=== PATIENT | female | born 2005 | race Caucasian/White ===

== ENCOUNTER 2024-11-09 15:18 | Outpatient (CLI) | payer OTHER, SELFPAY ==
--- NOTE | 2024-11-09 16:05 | US_ITS ---
PROCEDURE INFORMATION: Exam: US Biophysical Profile Without Non-Stress Test Exam date and time: 11/09/2024 4:23 PM Age: 19 years old Clinical indication: Other: Vaginal bleeding; TECHNIQUE: Imaging protocol: US biophysical profile without non-stress testing. COMPARISON: No relevant prior studies available. FINDINGS: heart rate: 146 bpm Amniotic fluid index: VENESSA is 9.01 cm. BIOPHYSICAL PROFILE: breathing (BPP): 2 /2 gross body movement (BPP): 2 /2 tone (BPP): 2 /2 Amniotic fluid (BPP): 2 /2 Biophysical profile score (BPP): 8 /8 MATERNAL ANATOMY: Cervix: Cervical length measures 3.1 cm. IMPRESSION: Biophysical profile score is 8 out of 8. No acute abnormality.
[2024-11-09 16:10] VITALS: BP 115/72; PULSE 87; RESP 16; TEMP 36.9; O2SAT 97; BMI 21.2
[2024-11-09 16:14] VITALS: BMI 21.2
[2024-11-09 17:58] LABS: Microscopic, Urine URINE MICROSCOPIC (MICROSCOPIC)
[2024-11-09 18:05] LABS: Bilirubin,Urine Negative (Negative); Color,Urine YELLOW (Yellow); Glucose,Urine (UA) TRACE (Negative); Ketones,Urine Negative (Negative); Leukocyte Esterase,Urine Negative (Negative); PH,Urine 6.0 (5.0-8.5); Protein,Urine Negative (Negative); Specific Gravity, Urine >= 1.030 (1.005-1.030); Urobilinogen,Urine 1.0 EU/dl (0.2)
== END 2024-11-09 18:20 | disposition home or self-care (01) ==
LOC: OBOUT 15:22 → OB 15:23
PROVIDERS: Visit Provider Obstetrics & Gynecology
DX: O46.90 Antepartum hemorrhage, unspecified, unspecified trimester (principal); Z3A.00 Weeks of gestation of pregnancy not specified
CPT/HCPCS: 59025; 76819; 81001; 99212; G0463

== ENCOUNTER 2024-12-28 16:43 | Emergency (ER) | payer OTHER, SELFPAY ==
[2024-12-28] VITALS (11 sets, daily range): BP systolic 106–119; BP diastolic 62–74; PULSE 104–157; RESP 12–21; TEMP 36.6–38; O2SAT 98–100; BMI 20.3
--- NOTE | 2024-12-28 16:52 | ECG_ITS ---
APPROVED REPORT Exam: Resting ECG HR:147 bpm ECG Measurements Heart Rate 147 AXES PA 151 P 74 QRSd 70 QRS 78 QT 314 T 0 QTc 398 Conclusion SINUS TACHYCARDIA, POSSIBLE ATRIAL FLUTTER INDETERMINATE AXIS POSSIBLE RIGHT VENTRICULAR CONDUCTION DELAY [RSR (QR) IN V1/V2] ST DEVIATION AND MODERATE T-WAVE ABNORMALITY, CONSIDER ANTEROLATERAL ISCHEMIA [-0.1+ mV T-WAVE IN V3-V6] ST DEVIATION AND MODERATE T-WAVE ABNORMALITY, CONSIDER INFERIOR ISCHEMIA [-0.1+ mV T-WAVE IN II/aVF] ABNORMAL ECG UNCONFIRMED REPORT Electronically signed by : CHARLENE QUINTEROS, 12/29/2024 23:03:23
--- NOTE | 2024-12-28 16:59 | XR_ITS ---
PROCEDURE INFORMATION: Exam: XR Chest Exam date and time: 12/28/2024 5:16 PM Age: 19 years old Clinical indication: Fever TECHNIQUE: Imaging protocol: Radiologic exam of the chest. Views: 1 view. Total images: 1 COMPARISON: No relevant prior studies available. FINDINGS: Tubes, catheters and devices: EKG leads are present. Lungs: Nonspecific hyperinflation. No consolidation. No pulmonary vascular congestion or edema. Pleural spaces: Unremarkable. No pleural effusion. No pneumothorax. Heart/Mediastinum: Unremarkable. No cardiomegaly. No mediastinal widening or hilar enlargement. Bones/joints: Status post median sternotomy. Soft tissues: Breast attenuation artifact. IMPRESSION: 1. No radiographically acute cardiopulmonary process. 2. Nonspecific hyperinflation.
[2024-12-28 17:22] LABS: Coronavirus 19, PCR Not Detected (NotDetected); Hematocrit 37.5 % (37.0-47.0); Hemoglobin 13.0 g/dL (12.2-16.2); Immature Granulocytes % 0.3 %; Influenza A, PCR Not Detected (NotDetected); Influenza B, PCR Not Detected (NotDetected); Mean Corpuscular HGB Conc 34.7 g/dL (31.8-35.4); Mean Corpuscular Hemoglobin 31.0 pg (27.0-31.2); Mean Corpuscular Volume 89.3 fl (81-99); Nucleated Red Blood Cells % 0 %; Platelet Count 311 K/mm3 (142-424); Red Blood Count 4.20 M/mm3 (4.20-5.40); Red Cell Distribution Width-SD 36.3 fL; White Blood Count 14.1 K/mm3 (4.5-13.0)
[2024-12-28 17:31] LABS: Alanine Aminotransferase 23 U/L (12-78); Albumin Level 4.3 g/dl (3.5-5.0); Albumin/Globulin Ratio 1.4 (1.1-1.8); Alkaline Phosphatase 148 U/L (38-126); Anion Gap 16.3 mEq/L (5-15); Aspartate Amino Transferase 27 U/L (14-36); Bilirubin,Total 0.5 mg/dl (0.2-1.3); Blood Urea Nitrogen 9 mg/dl (7-17); Calcium 9.2 mg/dl (8.4-10.2); Carbon Dioxide 23 mmol/L (22.0-30.0); Chloride 100 mmol/L (98-107); Creatinine Clearance Estimated 82 mL/min (50-200); Creatinine,Serum 0.90 mg/dl (0.52-1.04); Estimated Glomerular Filt Rate 80 ml/min (>60); GFR (African American) 97 ML/MIN (>60); Globulin 3.1 g/dL (1.3-3.2); Glucose 111 mg/dl (74-100); Potassium 3.3 mmoL/L (3.5-5.1); Sodium 136 mmol/L (136-145); Total Protein,Serum 7.4 g/dl (6.3-8.2)
[2024-12-28] MEDS: ACETAMINOPHEN 500MG TAB 1000 MG PO (17:33)
[2024-12-28] MEDS: 0.9 % SODIUM CHLORIDE 1000ML 1,000 ML 999 ML IV ×2 (17:33→18:25)
[2024-12-28 17:43] LABS: Troponin I < 0.01 ng/ml (0.00-0.034)
--- NOTE | 2024-12-28 17:55 | PC.NURSE ---
1735hrs- attempted to collect 2 sets of blood cultures on this patient, patient refused the straight stick for the second set so both sets were drawn from the IV site.
--- NOTE | 2024-12-28 18:38 | ED_ITS ---
<Statement entered by Saumya Talamantes DO - 12/30/24 03:13> I was consulted by the LISSETTE, and we discussed the complexity of problems being addressed. I approve the treatment and management plan for this patient's care in the emergency department, thus performing a substantial portion of the medical decision making. 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 Instructions Additional Instructions/Restrictions: You were seen for mastitis. Return to the ER if you have any worsening of symptoms. Please see your [facility] tomorrow, call first thing in the morning to schedule an appointment. Clinical Impressions Clinical Impression: Mastitis Instructions Patient Instructions: DI for Mastitis Print Language Print Language: Kosovan Discharge ED Provider: Saumya Talamantes General Adult HPI <EDU Wilks - Last Filed: 12/28/24 19:32> General Chief complaint: PAIN Stated complaint: pain in both breast, fever, chills, nausea Time Seen by Provider: 12/28/24 16:45 Mode of Arrival: Ambulatory Source of Information: Patient Description of Symptoms (Recalled from ER Triage Doc. by RN): patient presents to the ED with complaints of possible mastitis on both breasts. patient endorses engoregement and sore breasts for 3 days now with fevers up tp 103 at home. patient is 2 weeks and exclusively pumping. History of Present Illness HPI narrative: Patient presents complaining of bilateral breast pain, fever. She has had breast pain for several days. She is lactating, delivered her baby on 12/10. She reports that she developed breast pain and redness 3 to 4 days ago. Her fever started today, Tmax 103. She did take ibuprofen at home. Denies any vomiting or diarrhea. MD complaint: fever, breast pain, Onset (ago): day(s) Location: chest (breasts ) Radiation: non-radiation Severity: moderate Consistency: constant Relieving factors: other (ibuprofen ) Exacerbating factors: none Associated symptoms: fever/chills Treatments prior to arrival: NSAID Related Data Previous Rx's ?Medication ?Instructions ?Recorded cephalexin 500 mg capsule 500 mg PO QID 10 days #40 ca ps 12/29/24 Allergies Allergy/AdvReac Type Severity Reaction Status Date / Time No Known Allergies Allergy Verified 11/09/24 16:05 [facility] <EDU Wilks - Last Filed: 12/28/24 19:32> [facility] Disclaimer: The information contained in this section may have been updated after the patient was seen, as this information can be updated by other users. Social History (Updated 12/28/24 @ 19:32 by EDU Wilks) Smoking Status: Never smoker alcohol intake: never current occupational status: unemployed Travel in the last 8 weeks?: None Have you lived/traveled outside US in past 30 days?: No Contact w/someone who lives/traveled outside US past 30 days?: No Exposure to someone with infectious disease in past 14 days?: No Do you have a fever (greater than 100.4 F or 38 C)?: Yes Have you tested positive for COVID-19?: No Exposed to someone with COVID-19 in past 14 days?: No Do you have a sore throat?: No Do you have a cough?: No Do you have any weakness?: Yes Do you have any diarrhea?: No Are you experiencing any unusual bleeding?: No Do you have any muscle aches/pain?: No Do you have any abdominal pain?: No Are you experiencing loss of taste or smell?: No Other Medical History Have you received the Flu Vaccine for this season: No Have you received the Pneumonia Vaccine: No <EDU Wilks - Last Filed: 12/28/24 19:32> ROS Obtained: Yes Systems reviewed as appropriate & no additional complaints except as documented Physical Exam <EDU Wilks - Last Filed: 12/28/24 19:32> General General appearance: alert and in no apparent distress Head Head exam: atraumatic and normocephalic Eye Eye exam: Present normal appearance and EOMI Chest Chest inspection: Present symmetric chest wall rise Respiratory Respiratory exam: Present normal lung sounds bilaterally; Absent wheezes or stridor Cardiovascular Cardiovascular exam: Present regular rate and normal rhythm; Absent systolic murmur Extremities Exam Extremities exam: Present full ROM Neurological Exam Neurological exam: Present alert and oriented X3 Psychiatric Psychiatric exam: Present normal affect and normal mood Skin Skin exam: Present other (induration, warmth and tenderness to B/L lower outer quadrants of breasts ) Medical Decision Making <EDU Wilks - Last Filed: 12/28/24 19:32> Medical Records Screening: Per USPSTF and CDC recommendations, given the prevalence of disease in our region, it is our hospital?s policy to screen for HIV and viral Hepatitis for all patients aged 18 and over and those with ongoing risk factors. Gurmeet Inquiry Pt receiving controlled substance: No Vital Signs: 12/28/24 16:53 12/28/24 17:10 12/28/24 17:15 Temperature 100.4 F H Temperature Source Oral Pulse Rate Pulse Rate [Right Radial] 157 H Respiratory Rate 16 17 21 Blood Pressure 111/74 115/66 Blood Pressure [Right Arm] 106/67 L Blood Pressure Mean [Right Arm] 80 Blood Pressure Source Blood Pressure Source [Right Arm] Automatic Cuff Blood Pressure Position Blood Pressure Position [Right Arm] Sitting 02 Sat by Pulse Oximetry 100 98 98 Oxygen Delivery Method Room Air Room Air Room Air 12/28/24 17:20 12/28/24 17:25 12/28/24 17:40 Temperature Temperature Source Pulse Rate Pulse Rate [Right Radial] Respiratory Rate 18 21 12 Blood Pressure 115/74 116/68 119/68 Blood Pressure [Right Arm] Blood Pressure Mean [Right Arm] Blood Pressure Source Blood Pressure Source [Right Arm] Blood Pressure Position Blood Pressure Position [Right Arm] 02 Sat by Pulse Oximetry 98 98 98 Oxygen Delivery Method Room Air Room Air Room Air 12/28/24 17:45 12/28/24 17:50 12/28/24 17:55 Temperature Temperature Source Pulse Rate Pulse Rate [Right Radial] Respiratory Rate 17 17 17 Blood Pressure 110/64 111/64 113/62 Blood Pressure [Right Arm] Blood Pressure Mean [Right Arm] Blood Pressure Source Blood Pressure Source [Right Arm] Blood Pressure Position Blood Pressure Position [Right Arm] 02 Sat by Pulse Oximetry 98 98 98 Oxygen Delivery Method Room Air Room Air Room Air 12/28/24 18:00 12/28/24 19:44 Temperature 98 F Temperature Source Temporal Artery Scan Pulse Rate 104 H Pulse Rate [Right Radial] Respiratory Rate 17 15 Blood Pressure 116/65 114/64 Blood Pressure [Right Arm] Blood Pressure Mean [Right Arm] Blood Pressure Source Automatic Cuff Blood Pressure Source [Right Arm] Blood Pressure Position Sitting Blood Pressure Position [Right Arm] 02 Sat by Pulse Oximetry 98 Oxygen Delivery Method Room Air Room Air Lab Data Lab Results 12/28/24 17:07: WBC 14.1 H, RBC 4.20, Hgb 13.0, Hct 37.5, MCV 89.3, MCH 31.0, MCHC 34.7, RDW 11.3 L, Plt Count 311, MPV 9.0, Neut % (Auto) 84.9 H, Lymph % (Auto) 6.3 L, Russell % (Auto) 5.8, Eos % (Auto) 2.3, Baso % (Auto) 0.4, Neut # (Auto) 12.0 H, Lymph # (Auto) 0.9, Russell # (Auto) 0.8, Eos # (Auto) 0.3, Baso # (Auto) 0.1, Sodium 136, Potassium 3.3 L, Chloride 100, Carbon Dioxide 23, Anion Gap 16.3 H, BUN 9, Creatinine 0.90, Estimated Creat Clear 82, Estimated GFR 80, Est GFR ( Amer) 97, Glucose 111 H, Lactate 1.2, Calcium 9.2, Total Bilirubin 0.5, AST 27, ALT 23, Alkaline Phosphatase 148 H, Troponin I < 0.01, Total Protein 7.4, Albumin 4.3, Globulin 3.1, Albumin/Globulin Ratio 1.4, SARS-CoV-2 (PCR) Not detected, Influenza A Untype (PCR) Not detected, Influenza Type B (PCR) Not detected 12/28/24 19:44: Urine Color Yellow, Urine Appearance Sl cloudy, Urine pH 6.0, Ur Specific Hartline <= 1.005, Urine Protein Negative, Urine Glucose (UA) Negative, Urine Ketones Negative, Urine Blood 3+ A, Urine Nitrate Negative, Urine Bilirubin Negative, Urine Urobilinogen 0.2, Ur Leukocyte Esterase 2+ A, Urine RBC 3-5, Urine WBC 20-50, Ur Squamous Epith Cells 5-10, Urine Bacteria 3+ 12/28/24 17:07 12/28/24 17:07 Orders (Tests/Meds): ED MEDICATIONS Discontinued Medications Generic Name Dose Route Start Last Admin Trade Name Freq PRN Reason Stop Dose Admin Acetaminophen 1,000 mg 12/28/24 16:59 12/28/24 17:33 Acetaminophen 500mg Tab PO 12/28/24 17:00 1,000 mg ONCE ONE Administration Sodium Chloride 1,000 mls @ 999 mls/hr 12/28/24 17:02 12/28/24 18:48 Sod Chlor 0.9% 1000ml Bag IV 12/28/24 18:02 Infused .Q1H1M ONE Infusion Sodium Chloride 1,000 mls @ 999 mls/hr 12/28/24 18:10 12/28/24 19:25 Sod Chlor 0.9% 1000ml Bag IV 12/28/24 19:10 Infused .Q1H1M ONE Infusion Ceftriaxone Sodium 2 gm/ 100 mls @ 200 mls/hr 12/28/24 18:15 12/28/24 19:13 Sodium Chloride IV 01/07/25 18:14 Infused Q24H REJI Infusion Sodium Chloride 10 ml 12/28/24 16:59 Sodium Chloride 0.9% 10ml Flush Syringe IV 01/27/25 16:58 NEEDED PRN Maintain IV Site ORDERS Category Date Time Status Chest XR -- portable [XR chest portable] Stat Exams 12/28/24 16:59 Completed CBC w/Auto Diff [Complete Blood Count Auto Diff] Stat Lab 12/28/24 17:07 Completed CMP [Comprehensive Metabolic Panel] Stat Lab 12/28/24 17:07 Completed Lactic Acid Stat Lab 12/28/24 17:07 Completed Rapid PCR Covid and Flu A/B Stat Lab 12/28/24 17:07 Completed Troponin I Stat Lab 12/28/24 17:07 Completed Urinalysis and Microscopic Stat Lab 12/28/24 19:44 Completed Blood Culture Stat Micro 12/28/24 17:35 Received Urine Culture Stat Micro 12/28/24 19:44 Received Medical Decision Narrative: In summary patient is a 19-year-old female who presents the emergency department for evaluation of fever, breast. Patient is tachycardic, febrile upon arrival. Induration, erythema and tenderness of the bilateral outer lower quadrants of breasts. Differential diagnosis includes mastitis, sepsis, viral illness, UTI. Initial workup will be conducted with labs, urinalysis, COVID flu, chest x-ray. Initial inventions include IV fluid bolus. Initial workup reviewed by tx leukocytosis. Upon repeat evaluation tachycardia has improved with IV fluids. Given Rocephin for mastitis. Discussed care with Dr. Rosenberg, with [facility], the patient is normally seen by Dr. Dhaval Kim. They advised that they could see the patient tomorrow if she is given a prescription for dicloxacillin. The patient was offered admission given her tachycardia, fever, leukocytosis. She would prefer to go home at this point, I feel this is appropriate as her heart rate has improved to 99. Given this patient is appropriate for discharge home with prescription for dicloxacillin and strict return precautions. She is agreeable to plan.. <Anel Juárez, DO - Last Filed: 12/29/24 11:54> Vital Signs: 12/28/24 16:53 12/28/24 17:10 12/28/24 17:15 Temperature 100.4 F H Temperature Source Oral Pulse Rate Pulse Rate [Right Radial] 157 H Respiratory Rate 16 17 21 Blood Pressure 111/74 115/66 Blood Pressure [Right Arm] 106/67 L Blood Pressure Mean [Right Arm] 80 Blood Pressure Source Blood Pressure Source [Right Arm] Automatic Cuff Blood Pressure Position Blood Pressure Position [Right Arm] Sitting 02 Sat by Pulse Oximetry 100 98 98 Oxygen Delivery Method Room Air Room Air Room Air 12/28/24 17:20 12/28/24 17:25 12/28/24 17:40 Temperature Temperature Source Pulse Rate Pulse Rate [Right Radial] Respiratory Rate 18 21 12 Blood Pressure 115/74 116/68 119/68 Blood Pressure [Right Arm] Blood Pressure Mean [Right Arm] Blood Pressure Source Blood Pressure Source [Right Arm] Blood Pressure Position Blood Pressure Position [Right Arm] 02 Sat by Pulse Oximetry 98 98 98 Oxygen Delivery Method Room Air Room Air Room Air 12/28/24 17:45 12/28/24 17:50 12/28/24 17:55 Temperature Temperature Source Pulse Rate Pulse Rate [Right Radial] Respiratory Rate 17 17 17 Blood Pressure 110/64 111/64 113/62 Blood Pressure [Right Arm] Blood Pressure Mean [Right Arm] Blood Pressure Source Blood Pressure Source [Right Arm] Blood Pressure Position Blood Pressure Position [Right Arm] 02 Sat by Pulse Oximetry 98 98 98 Oxygen Delivery Method Room Air Room Air Room Air 12/28/24 18:00 12/28/24 19:44 Temperature 98 F Temperature Source Temporal Artery Scan Pulse Rate 104 H Pulse Rate [Right Radial] Respiratory Rate 17 15 Blood Pressure 116/65 114/64 Blood Pressure [Right Arm] Blood Pressure Mean [Right Arm] Blood Pressure Source Automatic Cuff Blood Pressure Source [Right Arm] Blood Pressure Position Sitting Blood Pressure Position [Right Arm] 02 Sat by Pulse Oximetry 98 Oxygen Delivery Method Room Air Room Air Lab Data Lab Results 12/28/24 17:07: WBC 14.1 H, RBC 4.20, Hgb 13.0, Hct 37.5, MCV 89.3, MCH 31.0, MCHC 34.7, RDW 11.3 L, Plt Count 311, MPV 9.0, Neut % (Auto) 84.9 H, Lymph % (Auto) 6.3 L, Russell % (Auto) 5.8, Eos % (Auto) 2.3, Baso % (Auto) 0.4, Neut # (Auto) 12.0 H, Lymph # (Auto) 0.9, Russell # (Auto) 0.8, Eos # (Auto) 0.3, Baso # (Auto) 0.1, Sodium 136, Potassium 3.3 L, Chloride 100, Carbon Dioxide 23, Anion Gap 16.3 H, BUN 9, Creatinine 0.90, Estimated Creat Clear 82, Estimated GFR 80, Est GFR ( Amer) 97, Glucose 111 H, Lactate 1.2, Calcium 9.2, Total Bilirubin 0.5, AST 27, ALT 23, Alkaline Phosphatase 148 H, Troponin I < 0.01, Total Protein 7.4, Albumin 4.3, Globulin 3.1, Albumin/Globulin Ratio 1.4, SARS-CoV-2 (PCR) Not detected, Influenza A Untype (PCR) Not detected, Influenza Type B (PCR) Not detected 12/28/24 19:44: Urine Color Yellow, Urine Appearance Sl cloudy, Urine pH 6.0, Ur Specific Hartline <= 1.005, Urine Protein Negative, Urine Glucose (UA) Negative, Urine Ketones Negative, Urine Blood 3+ A, Urine Nitrate Negative, Urine Bilirubin Negative, Urine Urobilinogen 0.2, Ur Leukocyte Esterase 2+ A, Urine RBC 3-5, Urine WBC 20-50, Ur Squamous Epith Cells 5-10, Urine Bacteria 3+ Orders (Tests/Meds): ED MEDICATIONS Discontinued Medications Generic Name Dose Route Start Last Admin Trade Name Freq PRN Reason Stop Dose Admin Acetaminophen 1,000 mg 12/28/24 16:59 12/28/24 17:33 Acetaminophen 500mg Tab PO 12/28/24 17:00 1,000 mg ONCE ONE Administration Sodium Chloride 1,000 mls @ 999 mls/hr 12/28/24 17:02 12/28/24 18:48 Sod Chlor 0.9% 1000ml Bag IV 12/28/24 18:02 Infused .Q1H1M ONE Infusion Sodium Chloride 1,000 mls @ 999 mls/hr 12/28/24 18:10 12/28/24 19:25 Sod Chlor 0.9% 1000ml Bag IV 12/28/24 19:10 Infused .Q1H1M ONE Infusion Ceftriaxone Sodium 2 gm/ 100 mls @ 200 mls/hr 12/28/24 18:15 12/28/24 19:13 Sodium Chloride IV 01/07/25 18:14 Infused Q24H REJI Infusion Sodium Chloride 10 ml 12/28/24 16:59 Sodium Chloride 0.9% 10ml Flush Syringe IV 01/27/25 16:58 NEEDED PRN Maintain IV Site ORDERS Category Date Time Status Chest XR -- portable [XR chest portable] Stat Exams 12/28/24 16:59 Completed CBC w/Auto Diff [Complete Blood Count Auto Diff] Stat Lab 12/28/24 17:07 Completed CMP [Comprehensive Metabolic Panel] Stat Lab 12/28/24 17:07 Completed Lactic Acid Stat Lab 12/28/24 17:07 Completed Rapid PCR Covid and Flu A/B Stat Lab 12/28/24 17:07 Completed Troponin I Stat Lab 12/28/24 17:07 Completed Urinalysis and Microscopic Stat Lab 12/28/24 19:44 Completed Blood Culture Stat Micro 12/28/24 17:35 Received Urine Culture Stat Micro 12/28/24 19:44 Received Medical Decision Narrative: In summary patient is a 19-year-old female who presents the emergency department for evaluation of fever, breast. Patient is tachycardic, febrile upon arrival. Induration, erythema and tenderness of the bilateral outer lower quadrants of breasts. Differential diagnosis includes mastitis, sepsis, viral illness, UTI. Initial workup will be conducted with labs, urinalysis, COVID flu, chest x-ray. Initial inventions include IV fluid bolus. Initial workup reviewed by tx leukocytosis. Upon repeat evaluation tachycardia has improved with IV fluids. Given Rocephin for mastitis. Discussed care with Dr. Rosenberg, with [facility], the patient is normally seen by Dr. Dhaval Kim. They advised that they could see the patient tomorrow if she is given a prescription for dicloxacillin. The patient was offered admission given her tachycardia, fever, leukocytosis. She would prefer to go home at this point, I feel this is appropriate as her heart rate has improved to 99. Given this patient is appropriate for discharge home with prescription for dicloxacillin and strict return precautions. She is agreeable to plan. Marquita, DO: 12/29/2024 -dicloxacillin was canceled and prescription changed to cephalexin 500 mg 4 times daily based on pharmacy availability. Critical Care <EDU Wilks - Last Filed: 12/28/24 19:32> Critical Care Time Critical Care Time: No
[2024-12-28 19:47] LABS: Microscopic, Urine URINE MICROSCOPIC (MICROSCOPIC)
[2024-12-28 19:48] LABS: Bilirubin,Urine Negative (Negative); Color,Urine YELLOW (Yellow); Glucose,Urine (UA) Negative (Negative); Ketones,Urine Negative (Negative); Leukocyte Esterase,Urine 2+ (Negative); PH,Urine 6.0 (5.0-8.5); Protein,Urine Negative (Negative); Specific Gravity, Urine <= 1.005 (1.005-1.030); Urobilinogen,Urine 0.2 EU/dl (0.2)
[2024-12-28 19:56] LABS: Bacteria,Urine 3+ /lpf; WBC,Urine 20-50 #/hpf (0-3)
--- NOTE | 2024-12-29 12:08 | PC.NURSE ---
PT CALLED STATING THAT [facility] WILL NOT HAVE RX PRESCRIBED YESTERDAY, UNTIL TOMORROW. NOTIFIED DR WILKINS, WILL CHANGE RX TO KEFLEX AND STOP PREVIOUS RX RX CHANGED BY MD AFTER PHARMACY WILL NOT HAVE MED UNTIL TOMORROW. NOTIFIED PT NEW RX HAS BEEN SENT IN TO [facility] AND PT SHOULD PICK IT UP TODAY
== END 2024-12-28 19:51 | disposition home or self-care (01) ==
PROVIDERS: Physician Assistant; Emergency Provider Student in an Organized Health Care Education/Training Program
DX: O91.22 Nonpurulent mastitis associated with the puerperium (principal); R50.9 Fever, unspecified; R00.0 Tachycardia, unspecified; R11.0 Nausea
CPT/HCPCS: 71045; 80053; 81001; 83605; 84484; 85025; 87040; 87086; 87636; 93005; 96361; 96365; 96366; 99285; J0696; J7030